=== PATIENT | male | born 1985 | race Caucasian/White ===

== ENCOUNTER 2019-09-20 23:54 | Emergency (ER) | payer OTHER, SELFPAY ==
--- NOTE | ~2019-09-20 | XR_ITS ---
EXAMINATION: XR chest 2V DATE: 09/21/2019 00:49 INDICATION: Shortness of breath and left-sided chest pain TECHNIQUE: PA and lateral views of the chest were obtained. COMPARISON: None FINDINGS: The lungs are clear with no focal airspace opacities, pulmonary edema, pleural effusion or pneumothor ax. The cardiomediastinal silhouette is normal. Visualized bones and soft tissues are unremarkable. IMPRESSION: 1. Normal chest radiograph. Reviewed, dictated and finalized at location A. IMPRESSION: 1. Normal chest radiograph.
[2019-09-21] VITALS: BP 134/87; PULSE 67; RESP 17; TEMP 36.6; O2SAT 99
--- NOTE | 2019-09-21 00:26 | ECG_ITS ---
Measurements Intervals [place] Rate: 66 P: 42 MS: 157 QRS: 2 QRSD: 114 T: 22 QT: 364 QTc: 382 Interpretive Statements SINUS RHYTHM INCOMPLETE RIGHT BUNDLE BRANCH BLOCK BASELINE ARTIFACT- I, II, AVR, AVF, V1 BORDERLINE ECG Electronically Signed On 09-21-2019 7:15:27 CDT by Manoj Cueto D.O.
[2019-09-21 00:58] LABS: Basophils Percent Auto 0.5 % (0.2-1.2); Eosinophils Absolute Auto 0.1 K/mm3 (0-0.3); Eosinophils Percent Auto 1.3 % (0-4.4); Hematocrit 46.5 % (42.0-52.0); Hemoglobin 15.4 g/dL (14.0-18.0); Immature Granulocyte Absolute 0.02 K/mm3 (0.00-0.031); Immature Granulocyte Percent A 0.2 % (0-0.5); Lymphocytes Absolute Auto 2.94 K/mm3 (0.9-3.2); Lymphocytes Percent Auto 33.7 % (18.3-44.2); Mean Corpuscular HGB Conc 33.1 g/dl (32-36); Mean Corpuscular Hemoglobin 28.3 pg (26-34); Mean Corpuscular Volume 85.3 fl (80-100); Monocytes Absolute Auto 0.7 K/mm3 (0.1-0.6); Monocytes Percent Auto 8.4 % (2.6-8.5); Neutrophils Absolute Auto 4.9 K/mm3 (1.3-6.7); Neutrophils Percent Auto 55.9 % (45.5-73.1); Platelet Count Result 253 k/mm3 (150-375); Red Blood Count 5.45 M/mm3 (4.6-6.20); Red Cell Distribution Width 13.6 % (11.5-14.5); White Blood Count 8.7 K/mm3 (4.5-10.0)
[2019-09-21 01:05] LABS: INR 0.9; Partial Thromboplastin Time 29.8 SECONDS (22.3-36.8)
[2019-09-21 01:10] LABS: Blood Urea Nitrogen 14 mg/dL (9-20); Calcium 9.7 mg/dL (8.4-10.2); Carbon Dioxide 27 mmol/L (22-30); Chloride 103 mmol/L (98-107); Estimated CRCL calculation 100 ml/min; Estimated Glomerular Filt Rate > 60; Glucose 96 mg/dL (75-110); Potassium 4.1 mmol/L (3.4-5.0); Sodium 137 mmol/L (137-145)
[2019-09-21 01:20] LABS: Troponin I < 0.012 ng/mL (0.000-0.034)
--- NOTE | 2019-09-21 02:17 | ED.GENADULT ---
HPI - General Adult General Chief complaint: Weakness Stated complaint: SOB, DIZZY, FEELS OUT OF IT, CP, STOMACH TORE UP Time Seen by Provider: 09/21/19 01:35 Source: patient Mode of arrival: ambulatory History of Present Illness HPI narrative: This patient is a 34 yo male who presents with c/o dizziness and cough. PAtient states he has had 3 episodes of coughing spells over the past few days. He also reports sinus drainage and ear pain. He reports he feels dizzy as well. Denies headache, vomiting, diarrhea or urinary complaints. Related Data Allergies Allergy/AdvReac Type Severity Reaction Status Date / Time iodine Allergy Unknown Verified 09/21/19 00:36 iohexol Allergy Unknown Verified 09/21/19 00:36 [From contrast - CT, X-RAY] Review of Systems Review of Systems: All systems reviewed & are unremarkable except as noted in HPI and below Constitutional: Constitutional: Denies chills and Denies fever(s) Eyes: Eyes: Reports no additional eye complaints ENT: Reports nasal congestion and Reports sore throat Cardiovascular: Cardiovascular: Denies chest pain Respiratory: Respiratory: Reports chest congestion, Reports cough and Denies dyspnea Gastrointestinal: Gastrointestinal: Reports abdominal pain, Denies constipation, Denies diarrhea, Reports nausea and Denies vomiting Neurologic: Reports dizziness and Denies headache(s) [facility] Social History Social History (Updated 09/21/19 @ 02:26 by Vanessa Mackenzie MD) Smoking packs per day: 0.5 Smoking cigarettes per day: 10.0 Smoking status: Current every day smoker Gender identity (if verbalized by the patient): Male Comments denies medical problems, denies surgical history Exam Const: General: no acute distress and alert Orientation/consciousness: patient oriented x3 HENMT: Head: normocephalic and atraumatic Ears: TM abnormal with fluid behind the TM bilateral; not erythematous Face and sinus: normal facial exam, sinuses nontender and face symmetric Mouth: Yes Normal oral and palatal mucosa present, Yes lip normal, Yes tongue normal, Yes oropharynx normal and Yes moist mucous membranes Throat: posterior oropharynx normal Eyes: Conjunctivae: conjunctivae normal Pupils: Equal, round and reactive pupils present EOM: EOMs intact bilaterally Chest: Chest palpation & inspection: normal inspection of the chest Resp: Effort & Inspection: normal respiratory effort, no retractions and no use of accessory muscles Auscultation: clear to auscultation bilaterally Cardio: Rate: regular rate Rhythm: regular rhythm Heart sounds: no murmurs GI: Inspection: non-distended GI Palp: Yes Soft to palpation, Yes Tenderness to palpation present (GI) (bilateral lower abdomen), No Guarding due to palpation present (GI), No Rigid due to palpation and No Hernia present Skin: General skin exam: normal color Rashes: no rashes Neuro: General: patient oriented x3, moves all extremities, no meningeal signs and CN's II-XI intact bilaterally Course Course Emergency Course: I Discsused with patient labs are unremarkable. He does have fluid in both ears which is likely cause of dizziness. PAtient has steady gait. He is very low risk of PE with PERC negative. Vital Signs Vital signs: Vital Signs Temperature 97.8 F 09/21/19 00:00 Pulse Rate 67 09/21/19 00:00 Respiratory Rate 17 09/21/19 00:00 Blood Pressure 134/87 09/21/19 00:00 Pulse Oximetry 99 09/21/19 00:00 Temperature 97.8 F 09/21/19 00:00 Pulse Rate 55 L 09/21/19 04:36 Respiratory Rate 20 09/21/19 04:36 Blood Pressure 128/58 L 09/21/19 04:36 Pulse Oximetry 100 09/21/19 04:36 Medical Decision Making Vital Signs Vital Signs: Vital Signs Temperature 97.8 F 09/21/19 00:00 Pulse Rate 67 09/21/19 00:00 Respiratory Rate 17 09/21/19 00:00 Blood Pressure 134/87 09/21/19 00:00 Pulse Oximetry 99 09/21/19 00:00 Temperature 97.8 F 09/21/19 00:00 Pul
[2019-09-21 02:18] VITALS: BP 123/71; PULSE 53; RESP 17; O2SAT 95
[2019-09-21] MEDS: ONDANSETRON HCL ODT 4 MG TABLET PO (02:25)
[2019-09-21] MEDS: MECLIZINE HCL 25 MG TABLET PO (02:25)
[2019-09-21 02:40] VITALS: BP 109/66; BP 118/81; BP 120/82; PULSE 59; PULSE 60; PULSE 63
[2019-09-21 02:51] LABS: Alanine Aminotransferase 15 U/L (4-50); Albumin Level 4.5 g/dL (3.5-5.1); Alkaline Phosphatase 33 U/L (38-126); Aspartate Amino Transferase 36 U/L (17-59); Bilirubin,Total 0.7 mg/dL (0.2-1.3); Lipase 79 U/L (23-300)
[2019-09-21 03:09] LABS: Add Urine Microscopic? YES; Appearance Urine Clear (Clear); Bilirubin Urine Negative (Negative); Blood Urine Negative (Negative); Color Urine Colorless (Yellow); Glucose Urine UA Negative (Negative); Ketones Urine Negative (Negative); Leukocyte Esterase Ur Negative LEU/UL (Negative); Nitrate Urine Negative (Negative); Protein Urine Negative (Negative); RBC Urine 0-2 /hpf (0-2); Specific Grav Ur 1.009 (1.001-1.035); Urobilinogen Urine Negative mg/dL (<2.0); WBC Urine 0-3 /hpf
[2019-09-21 03:55] LABS: Troponin I < 0.012 ng/mL (0.000-0.034)
[2019-09-21 04:36] VITALS: BP 128/58; PULSE 55; RESP 20; O2SAT 100
== END 2019-09-21 04:38 | disposition home or self-care (01) ==
PROVIDERS: Emergency Provider General Practice
DX: R42 Dizziness and giddiness (principal); F17.210 Nicotine dependence, cigarettes, uncomplicated; I45.10 Unspecified right bundle-branch block
CPT/HCPCS: 36415; 71046; 80048; 80076; 81001; 83690; 84484; 85025; 85610; 85730; 93005; 99284; A9270